=== PATIENT | female | born 1995 | race Caucasian/White ===

== ENCOUNTER 2021-03-25 11:51 | Emergency (ER) | payer OTHER ==
[2021-03-25 12:21] LABS: BASOPHILS % (AUTO) 0.2 %; EOSINOPHILS # (AUTO) 0.1 10^3/uL (0.0-0.7); HCT - HEMATOCRIT 39.2 % (37.0-47.0); HGB - HEMOGLOBIN 13.1 g/dL (12.0-16.0); LYMPHOCYTES # (AUTO) 1.8 10^3/uL (1.5-3.5); LYMPHOCYTES % (AUTO) 29.5 %; MEAN CORPUSCULAR HEMOGLOBIN 26.6 pg (27.0-31.0); MEAN CORPUSCULAR HGB CONC 33.4 g/dL (32.0-36.0); MEAN CORPUSCULAR VOLUME 79.7 fL (81.0-99.0); MEAN PLATELET VOLUME 9.1 fL (7.9-10.8); MONOCYTES # (AUTO) 0.5 10^3/uL (0.0-1.0); MONOCYTES % (AUTO) 7.5 %; NEUTROPHILS # (AUTO) 3.6 10^3/uL (1.5-6.6); NEUTROPHILS % (AUTO) 60.6 %; PLT - PLATELET COUNT 337 10^3/uL (130-450); RED BLOOD COUNT 4.92 10^6/uL (4.20-5.40); RED CELL DISTRIBUTION WIDTH 12.9 % (12.0-15.0)
[2021-03-25 12:52] LABS: BILIRUBIN,TOTAL 0.5 mg/dL (0.2-1.0); CALCIUM 10.3 mg/dL (8.5-10.3); CREATININE 0.4 mg/dL (0.4-1.0); POTASSIUM 3.9 mmol/L (3.5-5.0)
--- NOTE | 2021-03-25 13:53 | ED Physician Documentation ---
History of Present Illness - Stated complaint Stated Complaint: SOA, PAIN IN RIBS, WALKIN CLINIC REF - Chief complaint Chief Complaint: General - History obtained from History obtained from: Patient - History of Present Illness Timing: How many days ago (3) Pain level max: 5 Pain level now: 4 - Additonal information Additional information: Patient is a 25-year-old female who presents to the emergency department with 3 days of left-sided chest pain. She states that it is a sharp pain, worse with palpation and breathing. Nothing makes it better. No fevers. No chills. No coughing. Seen at the walk-in clinic earlier and sent here for possible PE due to tachycardia. Patient states she normally is not tachycardic. No recent travel. No hormone therapy. No leg swelling. Review of Systems Ten Systems: 10 systems reviewed and negative Constitutional: denies: Fever, Chills Respiratory: denies: Dyspnea, Cough GI: denies: Vomiting, Diarrhea Skin: denies: Rash Musculoskeletal: denies: Neck pain, Back pain Neurologic: denies: Headache PD PAST MEDICAL HISTORY - Past Medical History Past Medical History: No - Allergies Allergies/Adverse Reactions: Allergies Allergy/AdvReac Type Severity Reaction Status Date / Time No Known Drug Allergies Allergy Verified 03/25/21 11:56 - Living Situation Living Arrangement: reports: At home - Social History Does the pt smoke?: No Does the pt have substance abuse?: No PD ED PE NORMAL - Vitals Vital signs reviewed: Yes - General General: Alert and oriented X 3, No acute distress, Well developed/nourished - HEENT HEENT: PERRL, Moist mucous membranes, Pharynx benign - Neck Neck: Supple, no meningeal sign - Cardiac Cardiac: RRR, Strong equal pulses - Respiratory Respiratory: No respiratory distress, Clear bilaterally, Other (Tender to palpation over the left low anterior ribs, approximately 11 and 12. Reproduces her pain. No crepitus. No ecchymosis.) - Abdomen Abdomen: Soft, Non tender, Non distended - Derm Derm: Warm and dry - Extremities Extremities: No edema, No calf tenderness / cord - Neuro Neuro: Alert and oriented X 3 - Psych Psych: Normal mood, Normal affect Results - Vitals Vitals: Vital Signs - 24 hr 03/25/21 03/25/21 03/25/21 11:56 13:27 15:00 Temperature 36.5 C Heart Rate 135 H 113 H 97 Respiratory 18 25 H 23 Rate Blood Pressure 150/100 H 125/91 H 118/83 H O2 Saturation 100 96 100 Oxygen O2 Source Room air - EKG (time done) 1206 Rate: Rate (enter#) (128) Rhythm: Sinus tachycardia [place]: Normal Intervals: Normal MT QRS: Normal Ischemia: Normal ST segments, T wave inversion (inverted t wave III) - Labs Labs: Laboratory Tests 03/25/21 03/25/21 03/25/21 12:17 12:17 12:17 WBC 6.0 RBC 4.92 Hgb 13.1 Hct 39.2 MCV 79.7 L MCH 26.6 L MCHC 33.4 RDW 12.9 Plt Count 337 MPV 9.1 Neut # (Auto) 3.6 Lymph # (Auto) 1.8 [place] # (Auto) 0.5 Eos # (Auto) 0.1 Baso # (Auto) 0.0 Absolute Nucleated RBC 0.00 Nucleated RBC % 0.0 D-Dimer < 200.0 L Sodium 137 Potassium 3.9 Chloride 102 Carbon Dioxide 24 Anion Gap 11.0 BUN 9 Creatinine 0.4 Estimated GFR (MDRD) 191 Glucose 112 H Calcium 10.3 Total Bilirubin 0.5 AST 32 ALT 37 Alkaline Phosphatase 134 H Troponin I High Sens Total Protein 8.0 Albumin 4.0 Globulin 4.0 Albumin/Globulin Ratio 1.0 Lipase 43 TSH Free T4 03/25/21 03/25/21 12:17 12:17 WBC RBC Hgb Hct MCV MCH MCHC RDW Plt Count MPV Neut # (Auto) Lymph # (Auto) [place] # (Auto) Eos # (Auto) Baso # (Auto) Absolute Nucleated RBC Nucleated RBC % D-Dimer Sodium Potassium Chloride Carbon Dioxide Anion Gap BUN Creatinine Estimated GFR (MDRD) Glucose Calcium Total Bilirubin AST ALT Alkaline Phosphatase Troponin I High Sens < 2.3 L Total Protein Albumin Globulin Albumin/Globulin Ratio Lipase TSH < 0.08 L Free T4 4.30 H - Rads (name of study) cxr Radiology: Final report received, EMP read contemporaneously, See rad report (No acute displaced rib fracture. No pneumothorax. ) ct pa Radiology: Final report received, EMP read contemporaneously, See rad report (Negative for pulmonary embolism. No displaced rib fracture can be seen. Negative for pneumothorax. ) PD MEDICAL DECISION MAKING - ED course Complexity details: reviewed results, re-evaluated patient, considered differential (No ST elevation OR, no aortic dissection, no PE, no tension pneumothorax, no aortic aneurysm), d/w patient ED course: 25-year-old female with tachycardia and left-sided rib pain. Negative CT pulmonary angiogram. She is found to have hyperthyroidism we will have her follow-up with her doctor for further care and treatment of this. We will hold starting on medication as she is relatively asymptomatic from the tachycardia. Patient will follow up with her doctor later this week. Patient counseled regarding signs and symptoms for which I believe and urgent re-evaluation would be necessary. Patient with good understanding of and agreement to plan and is comfortable going home at this time This document was made in part using voice recognition software. While efforts are made to proofread this document, sound alike and grammatical errors may occur. Departure - Departure Disposition: 01 Home, Self Care Clinical Impression: Hyperthyroidism, Rib pain on left side Condition: Good Instructions: ED Hyperthyroidism Follow-Up: your,doctor within 3 days [Other] Comments: It is important to follow-up with your doctor this week for further investigation of your hyperthyroidism. Your TSH is less than 0.08. Your free T4 4.30. You will need further testing to determine the cause of your hyperthyroidism. They will likely want to start you on medication as more testing is performed. Return if you worsen. Please avoid caffeine and stimulants.t Discharge Date/Time: 03/25/21 16:07
[2021-03-25] MEDS ORDERED: IOPAMIDOL-300 100 ML VIAL ONE (13:54)
--- NOTE | 2021-03-25 13:55 | XRAY Report ---
PROCEDURE: Ribs w/PA Chest LT INDICATIONS: LEFT RIB PAIN,SOB TECHNIQUE: 2 views of the left ribs were acquired, along with a single view chest. COMPARISON: None. FINDINGS: Surgical changes and devices: None. Bones and chest wall: No acute displaced rib fracture. No suspicious bony lesions. Overlying soft tissues appear unremarkable. Lungs and pleura: No pleural effusions or pneumothorax. Lungs appear clear. Mediastinum: Mediastinal contours appear normal. Heart size is normal. IMPRESSION: No acute displaced rib fracture. No pneumothorax. Reviewed by: Tushar Doyle MD on 03/25/2021 1:54 PM PDT Approved by: Tushar Doyle MD on 03/25/2021 1:54 PM PDT Station ID: [id number]
[2021-03-25 14:24] LABS: THYROID STIMULATING HORMONE < 0.08 uIU/mL (0.34-5.60)
[2021-03-25] MEDS ORDERED: IOPAMIDOL-300 100 ML VIAL IVP ONE (14:51)
[2021-03-25 15:02] VITALS: BP 118/83
--- NOTE | 2021-03-25 15:04 | CT Report ---
PROCEDURE: ANGIO CHEST W/WO INDICATIONS: chest pain CONTRAST: IV CONTRAST: Isovue 300 ml: 80 PO CONTRAST: *NO PO CONTRAST TECHNIQUE: After the administration of intravenous contrast, images were acquired from the pulmonary apices to t he posterior costophrenic angles. 3-dimensional maximum intensity projection (MIP) coronal and sagit anais reformats were then acquired through the thorax. For radiation dose reduction, the following was used: automated exposure control, adjustment of mA and/or kV according to patient size. COMPARISON: Correlation is made with the accompanying rib plain films, 03/25/2021. FINDINGS: Image quality: Excellent. Pulmonary arteries: Pulmonary arteries are normal in size, and demonstrate no intraluminal filling d efects to suggest central pulmonary embolism. Lungs and pleura: Lungs are clear. No pleural effusions or pneumothorax. Central and peripheral ai rways are patent. Mediastinum: A small amount of residual thymus tissue can be seen within the anterior mediastinum, w hich is considered to be within normal limits for a patient of this age. Heart size is normal, witho ut pericardial effusion. No mediastinal or hilar adenopathy. Thoracic aorta is normal in caliber an d enhancement. Esophagus is normal in caliber, without hiatal hernia. Bones and chest wall: No suspicious bony lesions. Ribs and thoracic spine appear intact throughout. No axillary or supraclavicular adenopathy. The thyroid is normal in size and there are no incident al findings. Abdomen: Visualized upper abdominal solid organs appear normal in the early arterial phase of enhanc ement. IMPRESSION: Negative for pulmonary embolism. No displaced rib fracture can be seen. Negative for pneumothorax. Reviewed by: Carlos Manuel Velasquez MD on 03/25/2021 2:02 PM AKGISSEL Approved by: Carlos Manuel Velasquez MD on 03/25/2021 2:02 PM AKDT Station ID: [id number]
== END 2021-03-25 16:07 | disposition home or self-care (01) ==
LOC: ED 11:51
DX: R00.0 Tachycardia, unspecified (principal); R07.81 Pleurodynia; E05.90 Thyrotoxicosis, unspecified without thyrotoxic crisis or storm
CPT/HCPCS: 36415; 71101; 71275; 80053; 83690; 84439; 84443; 84484; 85025; 85379; 93005; 99284; Q9967